=== PATIENT | female | born 1945 | race Caucasian/White ===

== ENCOUNTER 2016-12-04 07:22 | Day surgery (SDC) | payer MEDICARE, OTHER ==
[2016-12-04] MEDS ORDERED: LACTATED RINGERS 1,000 ML ONE (07:34)
[2016-12-04] MEDS ORDERED: IV START KIT ONE (07:34)
[2016-12-04] MEDS ORDERED: PROPOFOL 40 ML IV ONE (08:40)
[2016-12-04] MEDS ORDERED: PROPOFOL 20 ML IV ONE (09:49)
--- NOTE | 2016-12-06 13:00 | SURGPATH ---
[facility] [address] [place] [id number] Patient Name: CHRISTOPHER VELEZ MR#: [id number] : 1945 Gender: F Specimen #: [id number] Collected: 12/04/2016 Received: 12/05/2016 Reported: 12/06/2016 Submitting Phys: MAICOL VALDES Copy To Phys: [facility] Clinical History / Pre-Operative Diagnosis: SCREENING Specimen Source / Surgical Procedure Performed: HEPATIC FLEXURE AT 60 CM Interpretation: BIOPSY, HEPATIC FLEXURE AT 60 CM: - FRAGMENT OF BENIGN COLONIC MUCOSA; NO DIAGNOSTIC ADENOMATOUS OR HYPERPLASTIC CHANGES IDENTIFIED. Electronically Signed Out Paty Kamara M.D. Gross Description: The specimen is received in a formalin filled container labeled with the patient's name and "hepatic flexure at 60 cm". Three red-adams biopsies are 0.1, 0.1 and 0.2 cm. Totally embedded in one cassette. Timothy Faustin, PDeisyADeisy Microscopic Description: Sections of the biopsy show a fragment of mildly distorted, benign colonic mucosa with nonspecific congestion of the lamina propria. No diagnostic adenomatous or hyperplastic changes are identified. 1: [id number] K63.89
== END 2016-12-04 10:21 | disposition home or self-care (01) ==
LOC: SDC 07:22
PROVIDERS: ATTEND Family Medicine
PROC: 0DBL8ZX Excision of Transverse Colon, Via Natural or Artificial Opening Endoscopic, Diagnostic (ICD-10-PCS; principal; 2016-12-04)
DX: Z12.11 Encounter for screening for malignant neoplasm of colon (principal); D12.6 Benign neoplasm of colon, unspecified; K57.30 Diverticulosis of large intestine without perforation or abscess without bleeding; K64.4 Residual hemorrhoidal skin tags; K64.8 Other hemorrhoids; Z87.891 Personal history of nicotine dependence
CPT/HCPCS: 45380; J7120